=== PATIENT | male | born 1995 | race Caucasian/White ===

== ENCOUNTER 2018-05-30 14:01 | Emergency (ER) | payer OTHER ==
--- NOTE | 2018-05-30 16:01 | ER Document Report ---
ED Medical Screen (RME) - General Chief Complaint: Headache Stated Complaint: HEADACHE Time Seen by Provider: 05/30/18 15:56 Primary Care Provider: MALIHA PARTIDA MD [ACTIVE STAFF] - Follow up as needed (This is the number of the sleep specialist.) PRETTY ZAZUETA [NO LOCAL MD] - Follow up as needed HILDA DEGROOT MD [ACTIVE STAFF] - Follow up as needed (This is the number for the sports medicine doctor/orthopedic surgeon for the shoulder.) Mode of Arrival: Ambulatory Information source: Patient Notes: This is a 22-year-old man who presents to the emergency room with occipital headaches for the past several months. 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 He also reports that he has been getting poor sleep at night and when he wakes up he can get back to sleep. He reports being very sleepy during the day. He does report snoring a lot while he sleeps. He does report having a lot of reflux symptoms. He states he has cut down on the amount of soda that he drinks. He does still drink energy drinks. He does not smoke. Review of systems: Patient does report right shoulder pain with range of motion for the past several months. Patient denies any known injuries. Patient denies any recent illnesses. He denies any fevers. TRAVEL OUTSIDE OF THE [place] IN LAST 30 DAYS: No - HPI Onset: Other - Last several weeks Onset/Duration: Gradual Quality of pain: Dull Severity: Moderate Pain Level: 2 Associated Symptoms: denies: Chest pain, Fever, Nausea, Shortness of breath, Vomiting Exacerbated by: Denies Relieved by: Denies Similar symptoms previously: Yes Recently seen / treated by doctor: No - Related Data Smoking: Non-smoker Frequency of alcohol use: None Drug Abuse: None Allergies/Adverse Reactions: Cephalosporins Allergy (Verified 05/30/18 14:02) Past Medical History - General Information source: Patient - Social History Cigarette use (# per day): No Chew tobacco use (# tins/day): No Frequency of alcohol use: None Drug Abuse: None Lives with: Family Family history: None - Past Medical History Cardiac Medical History: Reports: Other - Patient states he has had elevated triglycerides in the past Pulmonary Medical History: Reports: None EENT Medical History: Reports: None Neurological Medical History: Reports: None Endocrine Medical History: Reports: None Renal/ Medical History: Reports: None Malignancy Medical History: Reports None GI Medical History: Reports: None Musculoskeltal Medical History: Reports None Skin Medical History: Reports None Psychiatric Medical History: Reports: None Traumatic Medical History: Reports: None Infectious Medical History: Reports: None Surgical Hx: Negative Review of Systems - Review of Systems Constitutional: denies: Chills, Fever EENT: denies: Blurred vision, Double vision, Sinus pressure, Sinus discharge Cardiovascular: denies: Chest pain, Palpitations, Heart racing Respiratory: denies: Cough, Hemoptysis, Wheezing Gastrointestinal: denies: Abdominal pain, Diarrhea, Vomiting Genitourinary: No symptoms reported Male Genitourinary: No symptoms reported Musculoskeletal: Other - Right shoulder pain with movement Skin: No symptoms reported Hematologic/Lymphatic: No symptoms reported Neurological/Psychological: Headaches, Other - Poor sleep Physical Exam - Vital signs Vitals: Temp Pulse Resp BP Pulse Ox 98.4 F 66 16 150/81 H 100 05/30/18 14:37 05/30/18 14:37 05/30/18 14:37 05/30/18 14:37 05/30/18 14:37 Notes: Physical exam: GENERAL: Patient is alert and oriented x3, no acute distress HEAD: Atraumatic, normocephalic. EYES: Pupils equal round and reactive to light, extraocular movements intact, sclera anicteric, conjunctiva are normal. ENT: TMs normal, nares patent, oropharynx clear without exudates. Moist mucous membranes. NECK: Normal range of motion, supple without obvious mass or JVD. She has no meningismus. LUNGS: Breath sounds clear to auscultation bilaterally and equal. No wheezes rales or rhonchi. HEART: Regular rate and rhythm without murmurs, rubs or gallops. ABDOMEN: Soft, normoactive bowel sounds. No tenderness to palpation. No guarding, no rebound. No masses appreciated. EXTREMITIES: Normal range of motion, no pitting or edema. No clubbing or cyanosis. NEUROLOGICAL: Cranial nerves II through XII grossly intact. Visual quiroga are intact, motor is 5/5, sensory grossly intact, cerebellar (finger to nose) is great, sensory is good, normal speech, moving all extremities. Gait is normal, Romberg negative. PSYCH: Normal mood, normal affect. SKIN: Warm, Dry, normal turgor, no rashes or lesions noted. Course - Vital Signs Vital signs: Temp Pulse Resp BP Pulse Ox 98.5 F 68 16 155/95 H 100 05/30/18 16:02 05/30/18 16:02 05/30/18 16:02 05/30/18 16:02 05/30/18 16:02 Doctor's Discharge - Discharge Clinical Impression: Stress headaches, Right shoulder tendinitis, Elevated blood pressure reading Condition: Stable Disposition: HOME, SELF-CARE Additional Instructions: As we discussed, your neurologic exam was quite normal today. Given all that we talked about, I think your disrupted sleep patterns may be adding to the stress you are experiencing and causing stress headaches. Therefore, I would like you to take the medicine as prescribed: This is a medicine for reflux. Reflux can certainly disrupt her sleep. I would like you to eat a few hours before going to sleep (i.e. eating right before sleep will increase your reflux and disruptive sleep). I would like you to follow-up with Dr. Partida who is a sleep employment specialist (he is a cloth dyer but he specializes in sleep studies). I would like you to follow-up with him for the possibility of sleep apnea. I would like you to avoid energy drinks, caffeine and sodas. You could take ibuprofen or Naprosyn for the right shoulder tendinitis. Take this medicine with food and do not take it too close to bedtime (it can give rise to reflux). Return to the emergency room for any worsening headaches, headaches associated with fever (temperature greater than 100.5), difficulties ambulating or any visual disturbances. Note: Your blood pressure was elevated today. We do not diagnose someone with hypertension until they have had 3 readings at separate times with an elevated blood pressure. When you follow-up with Dr. Partida tell him that your blood pressure was elevated while in the ER (155/95). Prescriptions: Omeprazole 20 mg PO DAILY #30 tablet. Forms: Elevated Blood Pressure Referrals: PRETTY ZAZUETA [NO LOCAL MD] - Follow up as needed MALIHA PARTIDA MD [ACTIVE STAFF] - Follow up as needed (This is the number of the sleep specialist.) ZANE,HILDA, MD [ACTIVE STAFF] - Follow up as needed (This is the number for the sports medicine doctor/orthopedic surgeon for the shoulder.)
[2018-05-30 16:05] VITALS: BP 155/95
== END 2018-05-30 16:05 | disposition home or self-care (01) ==
LOC: ER 14:01
DX: F43.9 Reaction to severe stress, unspecified (principal); R51 Headache; M75.91 Shoulder lesion, unspecified, right shoulder; R06.83 Snoring; R03.0 Elevated blood-pressure reading, without diagnosis of hypertension; Z88.1 Allergy status to other antibiotic agents
CPT/HCPCS: 99283